=== PATIENT | male | born 1965 | race Caucasian/White ===

== ENCOUNTER 2021-03-18 15:11 | Emergency (ER) | payer OTHER, SELFPAY ==
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
[2021-03-18 15:26] VITALS: BP 120/73; PULSE 90; RESP 18; TEMP 36.7; O2SAT 96
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
== END 2021-03-18 16:10 | disposition left against medical advice (07) ==
PROVIDERS: Emergency Provider Emergency Medicine; PCP Family Medicine
DX: S19.9XXA Unspecified injury of neck, initial encounter (principal); S59.902A Unspecified injury of left elbow, initial encounter; M25.522 Pain in left elbow; M54.2 Cervicalgia; M54.5 Low back pain; G44.309 Post-traumatic headache, unspecified, not intractable; V13.4XXA Pedal cycle driver injured in collision with car, pick-up truck or van in traffic accident, initial encounter; Y93.9 Activity, unspecified; Y92.410 Unspecified street and highway as the place of occurrence of the external cause; Y99.9 Unspecified external cause status
CPT/HCPCS: 70450; 72125; 73080; 99283

== ENCOUNTER 2021-03-18 19:23 | Emergency (ER) | payer OTHER, SELFPAY ==
[2021-03-18 19:28] VITALS: BP 122/83; PULSE 110; RESP 18; TEMP 36.9; O2SAT 96
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
--- NOTE | 2021-03-18 21:28 | PC.NURSE ---
PT LEFT TOLD ANOTHER NURSE BE BACK TOMORROW.
--- NOTE | 2021-03-18 21:57 | PC.NURSE ---
MED NOTE GIVEN PT LWT.
== END 2021-03-18 21:15 | disposition left against medical advice (07) ==
PROVIDERS: Emergency Provider Emergency Medicine; PCP Family Medicine
DX: G44.309 Post-traumatic headache, unspecified, not intractable (principal)
CPT/HCPCS: 96372; 99283